=== PATIENT | male | born 1950 | race Caucasian/White ===

== ENCOUNTER → 2021-04-28 | Outpatient (CLI) | payer MEDICARE ==
[~2021-04-28] MED LIST: AMIODARONE HCL400 MG PO; CARDURA8 MG PO; CELEXA20 MG PO; CORDARONE 200M200 MG PO; COZAAR100 MG PO; DILTIAZEM HCL90 MG PO; ELIQUIS2.5 MG PO; HYDROCHLOROTHIA25 MG PO; LIPITOR TAB 2020 MG PO; LOPRESSOR50 MG PO; ULTRAM50 MG PO
[2021-04-28 11:29] LABS: HEMOGLOBIN 13.9 gm/dl (14.0-17.5); RED BLOOD COUNT 4.26 M/UL (4.20-5.50); WHITE BLOOD COUNT 5.4 K/UL (4.5-11.0)
[2021-04-28 12:03] LABS: BUN/CREATININE RATIO 23 (0-10)
[2021-04-29 08:13] LABS: VITAMIN D, 25-HYDROXY 60.4 ng/mL (30.0-100.0)
== END ==
LOC: LAB 09:01
PROVIDERS: Family Medicine
DX: Z12.5 Encounter for screening for malignant neoplasm of prostate (principal); E78.5 Hyperlipidemia, unspecified; I10 Essential (primary) hypertension; E55.9 Vitamin D deficiency, unspecified
CPT/HCPCS: 36415; 80053; 80061; 84439; 84443; 84481; 85027; G0103

== ENCOUNTER → 2021-12-04 | Outpatient (CLI) | payer MEDICARE ==
[2021-12-04 08:35] LABS: HEMOGLOBIN 13.9 gm/dl (14.0-17.5); RED BLOOD COUNT 4.39 M/UL (4.20-5.50); WHITE BLOOD COUNT 5.4 K/UL (4.5-11.0)
[2021-12-04 09:12] LABS: BUN/CREATININE RATIO 25 (0-10)
== END ==
LOC: LAB 08:19
PROVIDERS: Family Medicine
DX: E78.5 Hyperlipidemia, unspecified (principal); I10 Essential (primary) hypertension; E55.9 Vitamin D deficiency, unspecified
CPT/HCPCS: 36415; 80053; 80061; 84439; 84443; 85027

== ENCOUNTER → 2021-12-06 | Outpatient (CLI) | payer MEDICARE ==
[2021-12-07 07:12] LABS: RHEUMATOID ARTHRITIS FACTOR <10.0 IU/mL (<14.0)
== END ==
LOC: LAB 14:50
PROVIDERS: Nurse Practitioner Family
DX: M25.50 Pain in unspecified joint (principal)
CPT/HCPCS: 36415; 83520; 85652; 86140; 86200; 86431